=== PATIENT | male | born 1945 | race Caucasian/White ===

== ENCOUNTER 2024-02-17 09:24 | Emergency (ER) | payer MEDICARE, SELFPAY ==
[2024-02-17] VITALS (12 sets, daily range): BP systolic 105–165; BP diastolic 61–86; PULSE 46–87; RESP 16–23; TEMP 36.8; O2SAT 97–100
--- NOTE | ~2024-02-17 | XR_ITS ---
EXAMINATION: XR chest 2V DATE: 02/17/2024 09:51 INDICATION: Left shoulder and chest pain. TECHNIQUE: Frontal and lateral views of the chest were obtained. COMPARISON: None. FINDINGS: There is mild atelectasis at left lung base. No pleural effusion or pneumothorax. The heart size is normal. IMPRESSION: 1. Mild atelectasis at left lung base. Reviewed, dictated and finalized at location E.
--- NOTE | 2024-02-17 09:25 | ECG_ITS ---
Test Date: 2024-02-17 09:31:15 Measurements Intervals [place] Rate: 81 P: 32 CT: 189 QRS: 5 QRSD: 95 T: 38 QT: 348 QTc: 406 Interpretive Statements SINUS RHYTHM No previous ECG available for comparison Electronically Signed On 02-17-2024 13:49:49 CDT by Gama Chacon M.D.
[2024-02-17 09:55] LABS: Alanine Aminotransferase 23 U/L (6-50); Albumin Level 4.6 g/dL (3.5-5.1); Alkaline Phosphatase 94 U/L (38-126); Anion Gap 13 mmol/L (4-12); Aspartate Amino Transferase 36 U/L (17-59); Bilirubin,Total 1.4 mg/dL (0.2-1.3); Blood Urea Nitrogen 12 mg/dL (9-20); Calcium 9.5 mg/dL (8.4-10.2); Carbon Dioxide 27 mmol/L (22-30); Chloride 97 mmol/L (98-107); Estimated CRCL calculation 57 ml/min; Estimated Glomerular Filt Rate > 60; Glucose 110 mg/dL (65-110); Lipase 65 U/L (23-300); Potassium 4.4 mmol/L (3.4-5.0); Sodium 137 mmol/L (137-145)
[2024-02-17 10:01] LABS: Basophils Absolute Auto 0.1 K/mm3 (0.0-0.1); Basophils Percent Auto 0.7 % (0.2-1.2); Eosinophils Absolute Auto 0.9 K/mm3 (0-0.3); Eosinophils Percent Auto 7.9 % (0-4.4); Hematocrit 43.7 % (42.0-52.0); Hemoglobin 14.6 g/dL (14.0-18.0); Immature Granulocyte Absolute 0.04 K/mm3 (0.00-0.031); Immature Granulocyte Percent A 0.3 % (0-0.5); Lymphocytes Absolute Auto 2.43 K/mm3 (0.9-3.2); Lymphocytes Percent Auto 20.9 % (18.3-44.2); Mean Corpuscular HGB Conc 33.4 g/dl (32-36); Mean Corpuscular Hemoglobin 31.5 pg (26-34); Mean Corpuscular Volume 94.4 fl (80-100); Mean Platelet Volume 10.2 fl (7.4-10.4); Monocytes Absolute Auto 0.9 K/mm3 (0.1-0.6); Monocytes Percent Auto 7.6 % (2.6-8.5); Neutrophils Absolute Auto 7.3 K/mm3 (1.3-6.7); Neutrophils Percent Auto 62.6 % (45.5-73.1); Platelet Count Result 259 k/mm3 (150-375); Red Blood Count 4.63 M/mm3 (4.6-6.20); Red Cell Distribution Width 13.1 % (11.5-14.5); White Blood Count 11.6 K/mm3 (4.5-10.0)
[2024-02-17 10:05] LABS: Troponin I < 0.012 ng/mL (0.000-0.034)
[2024-02-17 10:12] LABS: INR 1.2; Partial Thromboplastin Time 31.4 Seconds (22.3-36.8); Prothrombin Time 15.3 Seconds (11.1-14.7)
--- NOTE | 2024-02-17 10:34 | ED.CHESTPAIN ---
HPI - Chest Pain General Chief Complaint: Chest Pain Stated Complaint: L shoulder/upper chest pain Time Seen by Provider: 02/17/24 10:09 Source: patient and family () Mode of arrival: ambulatory Limitations: no limitations History of Present Illness HPI narrative: Patient presents with left sided upper chest pain and left shoulder pain that started yesterday and was better after aspirin. Does not fully radiate into the left arm. No shortness of breath. It then recurred this morning and was occuring intermittently but is gone now. This has never happened before. He has started going to to a air technician for 4 months who diagnosed him as having some plaques. Roof Foreman is Louann Regalado. in [place] on [facility]. He notes a chronic cough for years intermittently. Non smoker. He has had allergies with some post nasal drip and thinks that might be related. Denies any lower extremity swelling. No trauma. Does perform some repetitive movements doing gym workouts (). No fever, diaphoresis, nausea, or vomiting. No diagnosis of HTN, DM, TIA/CVA, or MD. On Crestor for hyperlipedemia. Father had a myocardial infarction at 58yo. Related Data Home Medications Medication Instructions Recorded Confirmed cholecalciferol (vitamin D3) 125 125 mcg PO DAILY 10/26/20 mcg (5,000 unit) capsule loratadine 10 mg tablet (Claritin) 10 mg PO DAILY 10/26/20 multivitamin 1 tablet PO DAILY 10/26/20 Allergies Allergy/AdvReac Type Severity Reaction Status Date / Time No Known Allergies Allergy Verified 02/17/24 09:36 [facility]LY [facility] Past Medical History Medical History (Updated 02/18/24 @ 19:27 by Martha Reeves MD) Atherosclerotic plaque Hyperlipidemia Uses hearing aid Family History Family History Father Acute myocardial infarction, Onset Age: 58 Social History Social History Smoking status: Never smoker Alcohol intake: never Substance use: never Exam Narrative: GENERAL: Well-appearing, well-nourished, and in no acute distress. HEAD: Normocephalic, atraumatic. EYES: Non injected, non icteric ENT: Nares clear, no rhinorrhea or epistaxis. Hearing aid on the left. NECK: Supple. CHEST: Speaking in full sentences. No respiratory distress. Lungs clear to auscultation bilaterally. HEART: Regular rate and rhythm. Normal S1 and S2. ABDOMEN: Soft, nondistended. EXTREMITIES: Normal range of motion. No lower extremity edema. SKIN: Warm, dry, no rash. NEURO: No focal deficits. Alert and oriented x3. PSYCH: Normal mood and affect. Course Vital Signs Vital signs: Vital Signs Temperature 98.2 F 02/17/24 09:31 Pulse Rate 87 02/17/24 09:31 Respiratory Rate 16 02/17/24 09:31 Blood Pressure 165/85 H 02/17/24 09:31 Pulse Oximetry 100 02/17/24 09:31 Temperature 98.3 F 02/17/24 13:25 Pulse Rate 54 L 02/17/24 13:25 Respiratory Rate 17 02/17/24 13:25 Blood Pressure 117/62 02/17/24 13:25 Pulse Oximetry 100 02/17/24 13:25 Oxygen Delivery Room Air 02/17/24 11:10 MDM - Chest Pain MDM Narrative Medical decision making narrative: Patient presents with chest pain and left shoulder pain that occurred yesterday and again today. No trauma and not exertional. In the ED he is afebrile with VS that show hypertension. HEART SCORE History 2 highly suspicious 1 moderately suspicious 0 slightly suspicious History score [address] depression/elevation not due to LBBB, LVH, or digoxin [address] depression but LBBB, LVH, nonspecific repolarization changes 0 normal ECG score 0 Age 2 >/= 65 1 45-64 0 <45 Age score 2 Risk factors (HTN, hypercholesterolemia, DM, obesity with BMI >30, current smoker or cessation </=3mo), positive fam hx with parent or sibling with CVD before age 65, atherosclerotic disease (prior MD, PCI/CABG, CVA/TIA, or peripheral
[2024-02-17 10:58] LABS: D Dimer < 0.27 ug/mL (<0.48)
--- NOTE | 2024-02-17 12:02 | ECG_ITS ---
Test Date: 2024-02-17 12:06:44 Measurements Intervals [place] Rate: 52 P: 19 NC: 197 QRS: 8 QRSD: 97 T: 36 QT: 433 QTc: 406 Interpretive Statements SINUS BRADYCARDIA Compared to ECG 02/17/2024 09:31:15 Heart rate decreased Electronically Signed On 02-17-2024 13:51:47 CDT by Gama Chacon M.D.
[2024-02-17 12:42] LABS: Troponin I < 0.012 ng/mL (0.000-0.034)
== END 2024-02-17 13:27 | disposition home or self-care (01) ==
PROVIDERS: Emergency Provider Student in an Organized Health Care Education/Training Program
DX: R07.9 Chest pain, unspecified (principal); D72.829 Elevated white blood cell count, unspecified; I70.90 Unspecified atherosclerosis; E78.5 Hyperlipidemia, unspecified; R00.1 Bradycardia, unspecified
CPT/HCPCS: 36415; 71046; 80053; 83690; 84484; 85025; 85380; 85610; 85730; 93005; 99284

== ENCOUNTER 2024-03-04 09:39 | Emergency (ER) | payer MEDICARE, SELFPAY ==
[2024-03-04] VITALS (8 sets, daily range): BP systolic 132–164; BP diastolic 68–85; PULSE 58–69; RESP 13–18; TEMP 36.4–36.6; O2SAT 97–100
--- NOTE | ~2024-03-04 | XR_ITS ---
Clinical Indication: Chest pain PA and lateral views of the chest: Comparison: 02/17/2024 Findings: Probable atelectasis or interstitial change at the left lung base. Right lung clear. Cardi omediastinal silhouette is within normal limits. Bones and soft tissues are unremarkable. Impression: . Stable atelectasis or chronic interstitial change at the left lung base. Reviewed, dictated and finalized at location . Impression: . Stable atelectasis or chronic interstitial change at the left lung base.
--- NOTE | ~2024-03-04 | CT_ITS ---
EXAMINATION: CTA chest PE protocol DATE: 03/04/2024 15:03 INDICATION: Chest pain. TECHNIQUE: Computed tomography angiography (CTA) of the chest was performed with 100 mL Omnipaque-350 intravenous contrast timed to evaluate the pulmonary arteries. Coronal maximum intensity projection 3D-reconstructions were created by the technologist. Automated exposure control and iterative reconst ruction technique were employed. The dose-length product was 391.92 mGy-cm. COMPARISON: Chest 2 views 03/04/2024 FINDINGS: There is mild scarring at the lung apices. There is mild atelectasis bilaterally. There are a few nodules in the lungs measuring up to 5 mm, likely benign. No pleural effusion. The heart size is normal. There are coronary artery calcifications. There is a trace pericardial effusion. There is no pulmonary embolus. There is severe cervical spondylosis and mild thoracic spondylosis. There is mi ld chronic anterior wedging of T11-L1 vertebral bodies. IMPRESSION: 1. No pulmonary embolus. Reviewed, dictated and finalized at location A. IMPRESSION: 1. No pulmonary embolus.
--- NOTE | 2024-03-04 09:42 | ECG_ITS ---
Test Date: 2024-03-04 09:50:50 Measurements Intervals [place] Rate: 65 P: 58 MI: 187 QRS: 28 QRSD: 93 T: 58 QT: 382 QTc: 398 Interpretive Statements SINUS RHYTHM Compared to ECG 02/17/2024 12:06:44 Sinus bradycardia no longer present Electronically Signed On 03-04-2024 16:13:17 CDT by Delmer Nixon M.D.
[2024-03-04 10:02] LABS: Basophils Absolute Auto 0.1 K/mm3 (0.0-0.1); Basophils Percent Auto 0.8 % (0.2-1.2); Eosinophils Absolute Auto 0.8 K/mm3 (0-0.3); Eosinophils Percent Auto 7.3 % (0-4.4); Hematocrit 46.5 % (42.0-52.0); Hemoglobin 15.7 g/dL (14.0-18.0); Immature Granulocyte Absolute 0.03 K/mm3 (0.00-0.031); Immature Granulocyte Percent A 0.3 % (0-0.5); Lymphocytes Absolute Auto 2.93 K/mm3 (0.9-3.2); Lymphocytes Percent Auto 27.2 % (18.3-44.2); Mean Corpuscular HGB Conc 33.8 g/dl (32-36); Mean Corpuscular Hemoglobin 32.1 pg (26-34); Mean Corpuscular Volume 95.1 fl (80-100); Mean Platelet Volume 10.4 fl (7.4-10.4); Monocytes Absolute Auto 0.8 K/mm3 (0.1-0.6); Monocytes Percent Auto 7.2 % (2.6-8.5); Neutrophils Absolute Auto 6.2 K/mm3 (1.3-6.7); Neutrophils Percent Auto 57.2 % (45.5-73.1); Platelet Count Result 207 k/mm3 (150-375); Red Blood Count 4.89 M/mm3 (4.6-6.20); Red Cell Distribution Width 13.4 % (11.5-14.5); White Blood Count 10.8 K/mm3 (4.5-10.0)
[2024-03-04 10:17] LABS: Alanine Aminotransferase 19 U/L (6-50); Albumin Level 4.3 g/dL (3.5-5.1); Alkaline Phosphatase 81 U/L (38-126); Anion Gap 11 mmol/L (4-12); Aspartate Amino Transferase 28 U/L (17-59); Bilirubin,Total 1.4 mg/dL (0.2-1.3); Blood Urea Nitrogen 13 mg/dL (9-20); Carbon Dioxide 28 mmol/L (22-30); Chloride 98 mmol/L (98-107); Estimated CRCL calculation 52 ml/min; Estimated Glomerular Filt Rate > 60; Glucose 130 mg/dL (65-110); Lipase 109 U/L (23-300); Sodium 137 mmol/L (137-145)
[2024-03-04 10:25] LABS: INR 1.1
[2024-03-04 10:26] LABS: Partial Thromboplastin Time 31.5 Seconds (22.3-36.8)
[2024-03-04 10:28] LABS: Troponin I < 0.012 ng/mL (0.000-0.034)
--- NOTE | 2024-03-04 12:54 | ECG_ITS ---
Test Date: 2024-03-04 12:56:36 Measurements Intervals [place] Rate: 58 P: 9 WV: 164 QRS: 8 QRSD: 92 T: 44 QT: 404 QTc: 400 Interpretive Statements SINUS BRADYCARDIA OTHERWISE NORMAL ELECTROCARDIOGRAM Compared to ECG 03/04/2024 09:50:50 NO SIGNIFICANT CHANGE Electronically Signed On 03-04-2024 18:01:13 CDT by Daquan Davis M.D.
[2024-03-04 13:27] LABS: Troponin I < 0.012 ng/mL (0.000-0.034)
--- NOTE | 2024-03-04 16:28 | ED.CHESTPAIN ---
HPI - Chest Pain General Chief Complaint: Chest Pain Stated Complaint: chest pain Time Seen by Provider: 03/04/24 11:58 History of Present Illness HPI narrative: This is a 78-year-old male with a past medical history significant for hyperlipidemia who presents to the emergency department for evaluation of chest pain and left side of his chest. Chest pain is intermittent in nature and he notes that it is not worse with any certain activities or movements. Not associated with any exertion or difficulty in breathing. Denies any nausea, vomiting, diaphoresis withdrawal with respiration. States he has tried some ibuprofen which does help the pain. He was seen previously several weeks ago and diagnosed with musculoskeletal pain after a brief workup. He has not seen a planning manager but when he called his primary care provider today he was referred to the ER for evaluation of chest pain. No history of coronary disease to his knowledge. Has not had a stress test in the past. No long travel recent illnesses. No history of DVT/PE. Related Data Home Medications Medication Instructions Recorded Confirmed cholecalciferol (vitamin D3) 125 125 mcg PO DAILY 10/26/20 mcg (5,000 unit) capsule loratadine 10 mg tablet (Claritin) 10 mg PO DAILY 10/26/20 multivitamin 1 tablet PO DAILY 10/26/20 Allergies Allergy/AdvReac Type Severity Reaction Status Date / Time No Known Allergies Allergy Verified 02/17/24 09:36 Review of Systems Review of Systems: As reviewed above in HPI [facility] Past Medical History Medical History Atherosclerotic plaque Hyperlipidemia Uses hearing aid Family History Family History Father Acute myocardial infarction, Onset Age: 58 Social History Social History Smoking status: Never smoker Alcohol intake: never Substance use: never Exam Narrative: GENERAL: [Well-appearing, well-nourished, and in no acute distress.] HEAD: [Normocephalic, atraumatic.] EYES: [PERRLA and EOMI.] ENT: Nares clear, no rhinorrhea or epistaxis. Mucous membranes moist. NECK: Supple. CHEST: [Clear to auscultation. No respiratory distress.] HEART: [Regular rate and rhythm]. No murmur heard. [Normal peripheral pulses.] ABDOMEN: [Soft, nondistended], [nontender], [No rigidity or guarding] EXTREMITIES: Normal range of motion. [No edema.] SKIN: Warm, dry, no rash. NEURO: [No focal deficits]. Alert and oriented [x3.] PSYCH: [Normal mood and affect.] Course Vital Signs Vital signs: Vital Signs Temperature 36.4 C L 03/04/24 09:45 Pulse Rate 69 03/04/24 09:45 Respiratory Rate 16 03/04/24 09:45 Blood Pressure 151/78 H 03/04/24 09:45 Pulse Oximetry 100 03/04/24 09:45 Oxygen Delivery Room Air 03/04/24 09:45 Temperature 36.4 C L 03/04/24 09:45 Pulse Rate 66 03/04/24 15:05 Respiratory Rate 18 03/04/24 15:05 Blood Pressure 153/85 H 03/04/24 12:46 Pulse Oximetry 100 03/04/24 15:05 Oxygen Delivery Room Air 03/04/24 11:56 MDM - Chest Pain MDM Narrative Medical decision making narrative: This is a 78-year-old male presenting with left-sided chest pain for several weeks. Pain is intermittent in nature not associated with any dyspnea or exertion. Pain comes and goes without warning and lasts several minutes. Alleviated by ibuprofen. No recent travel or long car rides. Denies a history of PE or DVT. Presently has no chest pain or difficulty in breathing. Denies any symptoms while at rest while here in the ED. ambulating throughout the ED without difficulty. His vital sign shows some stable high blood pressure with blood pressure 153/83 and a normal pulse, respirations, pulse ox 100%. Differential diagnosis at this time includes ACS, musculoskeletal chest pain, pneumonia, pulmonary embolism
== END 2024-03-04 17:20 | disposition home or self-care (01) ==
PROVIDERS: Emergency Provider Student in an Organized Health Care Education/Training Program
DX: R07.89 Other chest pain (principal); E78.5 Hyperlipidemia, unspecified; R00.1 Bradycardia, unspecified
CPT/HCPCS: 36415; 71046; 71275; 80053; 83690; 84484; 85025; 85610; 85730; 93005; 99284; Q9967

== ENCOUNTER 2024-11-29 19:48 | Emergency (ER) | payer MEDICARE, SELFPAY ==
--- NOTE | 2024-11-29 19:55 | ED.URI ---
HPI - URI/Sore Throat General Chief Complaint: Upper Respiratory Infection Stated Complaint: chest infection Time Seen by Provider: 11/29/24 19:55 Source: patient Mode of arrival: ambulatory Limitations: no limitations History of Present Illness HPI Narrative: 79-year-old male presents with complaint of cough for 1 week. Two days sputum turned green, concern for bacterial infection. No chest pain or shortness breath. Afebrile. Not taking any [id number] medications to treat symptoms. All systems reviewed and negative except as noted above. Related Data Home Medications ?Medication ?Instructions ?Recorded ?Confirmed ?Last Taken ?Type cholecalciferol (vitamin D3) 125 125 mcg PO DAILY 10/26/20 Unknown History mcg (5,000 unit) capsule loratadine 10 mg tablet (Claritin) 10 mg PO DAILY 10/26/20 Unknown History multivitamin 1 tablet PO DAILY 10/26/20 Unknown History Allergies Allergy/AdvReac Type Severity Reaction Status Date / Time No Known Allergies Allergy Verified 11/29/24 19:58 Review of Systems Review of Systems: CONSTITUTIONAL: Denies fever, chills, or sweats. EYES: Denies visual changes, redness, or discharge. ENT: Denies rhinorrhea, congestion, sore throat, or otalgia. CARDIOVASCULAR: Denies chest pain, palpitations, or edema. RESPIRATORY: Reports cough, chest congestion, green sputum. Denies dyspnea. GASTROINTESTINAL: Denies abdominal pain, nausea, vomiting, or diarrhea. GENITOURINARY: Denies dysuria or hematuria. SKIN: Denies rash or itching. MUSCULOSKELETAL: Denies back pain, joint pain, or myalgia. NEUROLOGIC: Denies headache, numbness, or weakness. PSYCHIATRIC: Denies anxiety or depression. All other systems reviewed are negative, except as documented in HPI. [facility] Past Medical History Medical History Atherosclerotic plaque Hyperlipidemia Uses hearing aid Family History Family History Father Acute myocardial infarction, Onset Age: 58 Social History Social History Smoking status: Never smoker Alcohol intake: never Substance use: never Comments At time of signature, agree with nursing past medical, surgical, social and family history. There is no relevant family history pertinent to the presenting complaint. Exam Narrative: GENERAL: This is a well-nourished, well-developed patient, in no apparent distress. HEAD: normocephalic, atraumatic. EYES: PERRL. Sclera clear/white. Vision is grossly intact. EARS: External ears normal, auditory canals clear and without drainage, TMs normal without perforation. Hearing grossly intact. NOSE: External nose normal with no obvious nasal discharge, nares without redness, no rhinorrhea. THROAT: Mucous membranes moist, posterior pharynx clear. NECK: Neck supple, non-tender without lymphadenopathy, masses or thyromegaly. CARDIOVASCULAR: Regular rate and rhythm without murmurs, gallops, or rubs. RESPIRATORY: Rhonchi to right lung field. Breath sounds equal bilaterally. No wheezes, rales, or rhonchi. SKIN: warm, Dry, intact with no suspicious lesions or rash, good texture and turgor. NEURO: awake, alert, and oriented to person, place and time. There were no obvious focal neurologic abnormalities. EXTREMITIES: No joint tenderness, effusion, or edema noted. Course Course Level of Care: Express Care Visit Vital Signs Vital signs: Vital Signs Temperature 36.9 C 11/29/24 19:57 Pulse Rate 85 11/29/24 19:57 Respiratory Rate 20 11/29/24 19:57 Blood Pressure 135/71 11/29/24 19:57 Pulse Oximetry 99 11/29/24 19:57 Oxygen Delivery Room Air 11/29/24 19:57 Temperature 36.9 C 11/29/24 19:57 Pulse Rate 85 11/29/24 19:57 Respiratory Rate 20 11/29/24 19:57 Blood Pressure 135/71 11/29/24 19:57 Pulse Oximetry 99 11/29/24 19:57 Oxygen Delivery Room Air 11/29/24 19:57 Reviewed MDM - URI/Sore Throat MDM Narrative Medical decision making narrative: Patient is well-appearing, nontoxic. No respiratory distress. Rhonchi to right lung bradshaw on auscultation. Will treat with antibiotic as precaution. Discharge Plan Discharge Clinical Impression: Acute bronchitis Qualifiers: Bronchitis organism: other organism Qualified Code(s): J20.8 - Acute bronchitis due to other specified organisms Patient Disposition: Home Condition: Stable Instructions: Antibiotic Form, Acute Bronchitis (ED) Additional Instructions: Take antibiotic as prescribed until gone. Take Tylenol every 6-8 hours as needed for pain and fever. Drink at least 64 oz water a day. Place cool mist humidifier in bedroom where you sleep. Follow-up with your doctor if symptoms are not improving. If you are having chest pain or difficulty breathing go to the ER. Patient Language: Sudanese Prescriptions: New benzonatate 200 mg capsule 200 mg PO TID PRN (Reason: cough) Qty: 20 0RF doxycycline hyclate 100 mg capsule 100 mg PO BID 7 Days Qty: 14 0RF No Action loratadine [Claritin] 10 mg tablet 10 mg PO DAILY cholecalciferol (vitamin D3) 125 mcg (5,000 unit) capsule 125 mcg PO DAILY multivitamin Tablet 1 tablet PO DAILY acetaminophen 500 mg capsule 1,000 mg PO Q6H PRN (Reason: pain) Qty: 20 0RF Follow-up/Referrals: Fabricio,Louann Sutton [Other] Time of Disposition: 20:03
[2024-11-29 19:57] VITALS: BP 135/71; PULSE 85; RESP 20; TEMP 36.9; O2SAT 99
== END 2024-11-29 20:05 | disposition home or self-care (01) ==
PROVIDERS: Emergency Provider Nurse Practitioner Family
DX: J20.8 Acute bronchitis due to other specified organisms (principal); E78.5 Hyperlipidemia, unspecified
CPT/HCPCS: 99213; G0463

== ENCOUNTER 2025-01-18 16:24 | Emergency (ER) | payer MEDICARE, SELFPAY ==
--- NOTE | ~2025-01-18 | XR_ITS ---
XR hip RT 2V w AP pelvis Ordering provider: Eneida Garner MD History: . r hip pain . Comparison: None. FINDINGS: BONES: No acute fracture or dislocation. HIP JOINT SPACES: Moderate osteoarthritic changes. SACROILIAC JOINT SPACES/LUMBAR SPINE: The sacroiliac joint spaces are normal. Mild degenerative burnette es of the visualized lower lumbar spine. PUBIC SYMPHYSIS: Pubic symphysitis. SOFT TISSUES: Normal. IMPRESSION: No acute osseous abnormality pelvis and right hip. Bilateral sacroiliitis. Degenerative spine. Bilateral hip moderate osteoarthritic changes. Reviewed, dictated and finalized at location A.
--- NOTE | ~2025-01-18 | CT_ITS ---
CT pelvis wo con Ordering provider: Eneida Garner MD History: . r hip pain . Comparison: None. Technique: CT pelvis without oral and IV contrast. . Automated exposure control and iterative recons truction technique were employed. The dose-length product was 540.72 mGy-cm. Findings: BONES: No pelvic fracture or hip dislocation. Age appropriate degenerative changes of the visualized lower lumbar spine. Bilateral sacroiliacs. Bilateral mild to moderate hip osteoarthritic changes. Fus ion of the sacroiliac joints is noted. SUPERFICIAL SOFT TISSUES: soft tissue this density in the anterior abdominal wall measuring 1.1 cm w hich may be postinjection changes. Clinical correlation advised.. PELVIC ORGANS: The bladder is underfilled with thickened wall. Evaluation for cystitis advised. VISUALIZED BOWEL AND MESENTERY: Normal. No free air or free fluid. No lymphadenopathy. RETROPERITONEUM: Mild atheromatous disease. IMPRESSION: No evidence of fractures seen. Underfilled urinary bladder with surrounding fat stranding which may indicate cystitis. Further evalu ation advised. Reviewed, dictated and finalized at location A. IMPRESSION: No evidence of fractures seen. Underfilled urinary bladder with surrounding fat stranding which may indicate c ystitis. Further evaluation advised.
--- OUTSIDE RECORDS SUMMARY | 2025-01-18 16:26 | XMS_ITS | Clinical Summary ---
Author Organization [facility] C Address [address] [place] [address] Care Team Providers Care Propagation Worker Name Role Phone Louann Regalado MD Primary Care Provider + Allergies Active Allergy Reactions Criticality Noted Date Comments Animal Dander Unknown 02/23/2016 Chocolate Unknown 02/23/2016 Egg Yolk Hives,Other (See comments) Medium 2 Milk Other (See comments) Low 05/29/2023 Medications cholecalciferol 25 mcg (1,000 unit) tablet daily Active loratadine (Claritin) 10 mg tablet Take 1 tablet every day by oral route. 12/13/2019 Active multivitamin capsule Take 1 capsule by mouth daily Active omega-3 fatty acids-fish oil 300-1,000 mg capsule Take 2 capsules (2 g total) by mouth daily Active allopurinoL (ZYLOPRIM) 100 mg tablet Take 1 tablet (100 mg total) by mouth daily 11/22/2023 Active cefpodoxime (VANTIN) 200 mg tablet Take 1 tablet (200 mg total) by mouth every 12 (twelve) hours Active colchicine (COLCRYS) 0.6 mg tablet Take 1 tablet (0.6 mg total) by mouth daily 11/22/2023 Active metFORMIN (GLUCOPHAGE) 500 mg tablet TAKE 1-2 TABLETS BY MOUTH TWICE DAILY WITH MEALS 11/22/2023 Active Crestor 5 mg tablet 12/10/2023 Active Active Problems Problem Noted Date Diagnosed Date Gastroesophageal reflux disease 12/16/2023 Sinusitis 09/03/2023 Backache 02/28/2023 Coronary arteriosclerosis 02/28/2023 Overview (12/16/2023): CT Coronary test - score 743 Essential hypertension 11/10/2022 Bladder pain 04/17/2022 COVID-19 07/15/2021 Overview (12/16/2023): OCTOBER 2021 Disorder of tongue 10/13/2020 Bronchitis 10/29/2017 Chest pain 04/11/2017 Actinic keratosis 12/14/2016 Digital mucous cyst 12/14/2016 Abnormal prostate specific antigen (PSA) 016 Allergic rhinitis 11/23/2015 Decreased hearing 11/23/2015 Dilatation of aorta 11/23/2015 Hyperlipidemia 11/23/2015 Nocturia 11/23/2015 Prediabetes 11/23/2015 Solitary pulmonary nodule 11/23/2015 Overview (12/16/2023): Removal Reason: Stable Vitamin D deficiency 11/23/2015 Surgical History Surgery Date Site/Laterality Comments SINUS SURGERY Sinus Surgery - (Added by TW Conv) Family History Medical History Relation Name Comments Coronary artery disease Father Fami ly history of coronary artery disease - (Added by TW Conv) Stroke Father Family history of cerebrovascular accident (CVA) - (Added by TW Conv) Hypertension Mother Family history of hypertension - (Added by TW Conv) Relation Name Status Comments Father Mother Social History Tobacco Use Types Packs/Day Years Used Date Smoking Tobacco: Never Sex and Gender Information Value Date Recorded Sex Assigned at Not on file 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 Gender Identity Male 04/04/2023 11:30 AM CDT Sexual Orientation Straight 04/04/2023 11 :30 AM CDT Obstetrics History Last Filed Vital Signs Vital Sign Reading Time Taken Comments Blood Pressure 140/70 12/16/2023 4:31 PM CDT Pulse 73 12/16/2023 4:31 PM CDT Temperature 36.8 C (98.3 F) 12/16/2023 4:31 PM CDT Respiratory Rate 16 12/16/2023 4:31 PM CDT Oxygen Saturation 99% 12/16/2023 4:31 PM CDT Inhaled Oxygen Concentration - - Weight 92.1 kg (203 lb) 12/16/2023 4:31 PM CDT Height 180.3 cm (5' 11) 12/16/2023 4:31 PM CDT Body Mass Index 28.31 12/16/2023 4:31 PM CDT Plan of Treatment Health Maintenance Due Date Last Done Comments Depression Screening 1945 Fall Risk Assessment 1945 Hepatitis C Screening 1945 DTaP/Tdap/Td Vaccine (1 - Tdap) 1958 Hepatitis B Screening 1965 Zoster Vaccine (2 of 3) 09/03/2009 07/09/2009 Well Visit 65+ 2012 Covid-19 Vaccine (2023-2 5 season) 2024 09/09/2020, 09/09/2020, 08/12/2020, Additional history exists Influenza Vaccine (#1) 2025 Pneumococcal vaccine 65+ Completed 023, 12/06/2016, 11/06/2014 Insurance [facility] MEDICARE ADVANTAGE [facility] Address: [address] [address] [place] [address] [facility] MEDICARE [employer]ET[employer] MEDICARE Care Teams Propagation Worker Relationship Specialty [place] [address] [place] [id number] PCP - General Internal Medicine 03/28/24
--- OUTSIDE RECORDS SUMMARY | 2025-01-18 16:27 | XMS_ITS | Referral Summary ---
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 Gender Identity Male 04/04/2023 11:30 AM CDT Sexual Orientation Straight 04/04/2023 11 :30 AM CDT Last Filed Vital Signs Vital Sign Reading [...] 12/16/2023 4:31 PM CDT Plan of Treatment Not on file Insurance [facility] MEDICARE ADVANTAGE [facility] Address: [address] [address] [place] [address] FORMERLY [facility] MEDICARE FORMERLY [facility] MEDICARE Care Teams Typesetting Machine Tender Relationship Specialty [place] [address] [place] [id number] PCP - General Internal Medicine 03/28/24
--- OUTSIDE RECORDS SUMMARY | 2025-01-18 16:27 | XMS_ITS | Encounter Summary ---
Author Organization [facility] Address [address] [place] [address] Care Team Providers Care Varnishing Unit Operator Name Role Phone Cholo Child MD Primary Care Provider [phone] Rigoberto Trinidad MD Primary Care Provider [phone] Louann Regalado MD Primary Care Provider + Encounter Details Date Type Department Care Team (Late st Contact Info) Description 11/01/2016 Orders Only [facility] Provider, MD Mary Ann [address] [place] [id number] Social History Tobacco Use Types Packs/Day Years Used Date Smoking Tobacco: Never Sex and Gender Information Value Date Recorded Sex Assigned at Not on file 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 Gender Identity Male 04/04/2023 11:30 AM CDT Sexual Orientation Straight 04/04/2023 11 :30 AM CDT documented as of this encounter Plan of Treatment Not on file documented as of this encounter Visit Diagnoses Not on filedocumented in this encounter Care Teams Varnishing Unit Operator Relationship Specialty Start Date End Date Cholo Child MD [address] [place] [address] PCP - General 12/23/14 12/07/16 Rigoberto Trinidad MD [address] [place] [address] PCP - General 12/08/16 03/27/24 [place] [address] [place] [id number] PCP - General Internal Medicine 03/28/24 documented as of this encounter
[2025-01-18 16:32] VITALS: BP 159/84; PULSE 91; RESP 16; TEMP 36.4; O2SAT 100
--- OUTSIDE RECORDS SUMMARY | 2025-01-18 20:10 | XMS_ITS | Clinical Summary ---
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
--- OUTSIDE RECORDS SUMMARY | 2025-01-18 20:10 | XMS_ITS | Encounter Summary ---
Author Organization [facility] Address [address] [place] [address] Care Team Providers Care Sales And Service Agent Name Role Phone Cholo Child MD Primary Care Provider [phone] Rigoberto Trinidad MD Primary Care Provider [phone] Louann Regalado MD Primary Care Provider + Encounter Details Date Type Department Care Team (Late st Contact Info) Description 11/01/2016 Orders Only [facility] Provider, MD Mary Ann [address] [place] [id number] Social History Tobacco Use Types Packs/Day Years Used Date Smoking Tobacco: Never Sex and Gender Information Value Date Recorded Sex Assigned at Not on file 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 Gender Identity Male 04/04/2023 11:30 AM CDT Sexual Orientation Straight 04/04/2023 11 :30 AM CDT documented as of this encounter Plan of Treatment Not on file documented as of this encounter Visit Diagnoses Not on filedocumented in this encounter Care Teams Sales And Service Agent Relationship Specialty Start Date End Date Cholo Child MD [address] [place] [address] PCP - General 12/23/14 12/07/16 Rigoberto Trinidad MD [address] [place] [address] PCP - General 12/08/16 03/27/24 [place] [address] [place] [id number] PCP - General Internal Medicine 03/28/24 documented as of this encounter
--- OUTSIDE RECORDS SUMMARY | 2025-01-18 20:10 | XMS_ITS | Referral Summary ---
Author Organization 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
[2025-01-18 20:17] VITALS: BP 168/87; PULSE 88; RESP 18; O2SAT 99
--- NOTE | 2025-01-18 20:23 | ED_ITS ---
HPI - General Adult General Chief complaint: Extremity Injury, Lower Stated complaint: R hip hurting, fall 1 month ago Time Seen by Provider: 01/18/25 19:59 History of Present Illness HPI narrative: Patient is a 79-year-old male who presents to the emergency department this evening complaining of right-sided hip pain. States that he injured his right hip approximately 1 month ago within this past Sunday he fell on it again. Patient states that he is able to walk but with the help of a cane. Finally decided to come in and get this checked out as he is concerned of possible fracture. Denies hitting his head when he fell and denies any additional injuries. Patient does have intact full range of motion at the right hip joint. Related Data Home Medications ?Medication ?Instructions ?Recorded ?Confirmed ?Last Taken ?Type cholecalciferol (vitamin D3) 125 125 mcg PO DAILY 10/26/20 Unknown History mcg (5,000 unit) capsule loratadine 10 mg tablet (Claritin) 10 mg PO DAILY 10/26/20 Unknown History multivitamin 1 tablet PO DAILY 10/26/20 Unknown History Allergies Allergy/AdvReac Type Severity Reaction Status Date / Time No Known Allergies Allergy Verified 01/18/25 16:35 Review of Systems Review of Systems: All systems are reviewed and are negative unless stated otherwise in the HPI. [facility] Past Medical History Medical History Atherosclerotic plaque Hyperlipidemia Uses hearing aid Family History Family History Father Acute myocardial infarction, Onset Age: 58 Social History Social History Smoking status: Never smoker Alcohol intake: never Substance use: never Exam Narrative: General: Alert, awake, afebrile, in no acute distress. HEENT: PERRL, no rhinorrhea, no post nasal drip, oropharynx clear. Neck: Trachea midline, no JVD, no lymphadenopathy. Cardiovascular: Regular rate and rhythm, no murmurs, rubs or gallops, no peripheral edema. Respiratory: Clear to auscultation bilaterally, no tachypnea, no wheezing, no rhonchi, no rubs, no respiratory distress. Abdomen: Soft, nontender, nondistended, no rebound, no guarding, no peritoneal signs. Musculoskeletal: No joint swelling or deformity, normal muscle tone, intact full range of motion at the right hip joint. Patient states that the pain is only when he is ambulating. Skin: No rashes or petechia, no signs of infection. Psychiatric: Alert and oriented, normal behavior and judgment for situation. Neurological: Alert and oriented to person, place, and time. Follows all c ommands. No focal deficits, speech is clear and fluent. Course Vital Signs Vital signs: Vital Signs Temperature 97.6 F 01/18/25 16:32 Pulse Rate 91 01/18/25 16:32 Respiratory Rate 16 01/18/25 16:32 Blood Pressure 159/84 H 01/18/25 16:32 Pulse Oximetry 100 01/18/25 16:32 Oxygen Delivery Room Air 01/18/25 16:32 Temperature 97.6 F 01/18/25 16:32 Pulse Rate 88 01/18/25 20:17 Respiratory Rate 18 01/18/25 20:17 Blood Pressure 168/87 H 01/18/25 20:17 Pulse Oximetry 99 01/18/25 20:17 Oxygen Delivery Room Air 01/18/25 16:32 Medical Decision Making MDM Narrative Medical decision making narrative: The patient was evaluated by myself in the emergency department. History is obtained from patient who is an independent historian and physical exam was performed. External medical records were reviewed at this time. Imaging studies obtained included AP pelvis x-ray with right hip and CT pelvis without IV contrast which was independently interpreted by me revealing no acute process, which is pending final radiology interpretation. Differential diagnosis considerations include fracture, dislocation, hip contusion, sciatica. Comorbidities impacting this visit include none. I have evaluated and discussed social determinants of health with the patient that could potentially impact subsequent diagnosis and treatment plans. On repeat assessment of the patient, reevaluation revealed that the patient is doing well and is in no acute distress. Patient symptoms have remained stable since he arrived to our emergency department. Repeat vital signs were all reviewed and noted to be stable. Differential diagnosis and treatment plan were discussed with the patient at bedside. Patient agrees with discussion and after shared medical decision making agrees with discharge. All questions were answered to the patient's satisfaction. Patient will follow up with his PCP in 3-5 days. Patient was provided with strict return precautions and instructed to return to the emergency department if any new or worsening symptoms develop. The patient was discharged in stable condition. Vital Signs Vital Signs: Vital Signs Temperature 97.6 F 01/18/25 16:32 Pulse Rate 91 01/18/25 16:32 Respiratory Rate 16 01/18/25 16:32 Blood Pressure 159/84 H 01/18/25 16:32 Pulse Oximetry 100 01/18/25 16:32 Oxygen Delivery Room Air 01/18/25 16:32 Temperature 97.6 F 01/18/25 16:32 Pulse Rate 88 01/18/25 20:17 Respiratory Rate 18 01/18/25 20:17 Blood Pressure 168/87 H 01/18/25 20:17 Pulse Oximetry 99 01/18/25 20:17 Oxygen Delivery Room Air 01/18/25 16:32 Discharge Plan Discharge Clinical Impression: Acute pain of right hip Patient Disposition: Home Condition: Improved Instructions: Antibiotic Form, Hip Pain (ED) Additional Instructions: Please follow-up with your family doctor within the next 3-5 days. Return to emergency department if any new or worsening symptoms develop. Patient Language: Maltese Prescriptions: No Action benzonatate 200 mg capsule 200 mg PO TID PRN (Reason: cough) Qty: 20 0RF doxycycline hyclate 100 mg capsule 100 mg PO BID 7 Days Qty: 14 0RF loratadine [Claritin] 10 mg tablet 10 mg PO DAILY cholecalciferol (vitamin D3) 125 mcg (5,000 unit) capsule 125 mcg PO DAILY multivitamin Tablet 1 tablet PO DAILY acetaminophen 500 mg capsule 1,000 mg PO Q6H PRN (Reason: pain) Qty: 20 0RF Follow-up/Referrals: PHYSICIAN NOT ON STAFF,NONSTAFF [Primary Care Provider] - 3 Days Time of Disposition: 21:18
== END 2025-01-18 21:44 | disposition home or self-care (01) ==
PROVIDERS: Emergency Provider Emergency Medicine
DX: S79.911A Unspecified injury of right hip, initial encounter (principal); E78.5 Hyperlipidemia, unspecified; M46.1 Sacroiliitis, not elsewhere classified; W19.XXXA Unspecified fall, initial encounter
CPT/HCPCS: 72192; 73502; 99284